=== PATIENT | female | born 1980 | race African-American/Black ===

== ENCOUNTER 2019-07-27 09:45 | Inpatient (IN) | payer OTHER ==
[~2019-07-27] VITALS: Ht 162.6 cm; Wt 72.1 kg
--- NOTE | 2019-07-27 09:58 | NUR ---
PT IS A/OX4, PRESENTS TO THE ER C/O C/P THAT BEGAN AT 1999 LAST NIGHT. PT REPOTS THE C/P CAME ON GRADUALLY WHILE AT REST, NON-PROVOKING, ACHING IN QUALITY, RADIATING DOWN THE R ARM, 2 CURRENTLY. PT SELF-MEDICATED W/ 400 MG IBUPROFEN PALLET RECTIFIER. VS WNL. PT IS SINUS BARDYCARDIC ON THE STUNTMAN. PT DENIES SOB, N/V/D, DIZZINESS, HEADACHE.
[2019-07-27] MEDS ORDERED: IBUP-1953 PO (10:04)
[2019-07-27] MEDS ORDERED: LEVO125T8 PO (10:04)
[2019-07-27] MEDS ORDERED: ATROPINE SULFATE 1 MG/10 ML DISP.SYRIN IV ONE (10:15)
[2019-07-27] MEDS ORDERED: ASPIRIN 325 MG TABLET PO ONE (10:15)
[2019-07-27] MEDS ORDERED: ASPIRIN 325 MG TABLET ONE (10:17)
[2019-07-27] MEDS ORDERED: ATROPINE SULFATE 1 MG/10 ML DISP.SYRIN ONE (10:18)
[2019-07-27 10:23] LABS: BASOPHILS % (AUTO) 0.8 % (0.0-2.0); EOSINOPHILS # (AUTO) 0.1 K/uL (0.0-0.7); EOSINOPHILS % (AUTO) 2.1 % (0.0-7.0); HEMATOCRIT 38.6 % (31.2-41.9); HEMOGLOBIN 12.7 g/dL (10.9-14.3); LYMPHOCYTES # (AUTO) 2.4 K/uL (20.0-40.0); LYMPHOCYTES % (AUTO) 45.9 % (20.5-51.5); MEAN CORPUSCULAR HGB CONC 33 g/dL (32.3-35.6); MEAN CORPUSCULAR VOLUME 94.6 fL (75.5-95.3); MONOCYTES # (AUTO) 0.5 K/uL (2.0-10.0); MONOCYTES % (AUTO) 10.1 % (0.0-11.0); NEUTROPHILS # (AUTO) 2.2 K/uL (1.8-8.9); NEUTROPHILS % (AUTO) 41.1 % (38.5-71.5); PLATELET COUNT (AUTO) 250 K/uL (179-408); RED BLOOD CELL COUNT(AUTO) 4.08 MIL/uL (3.63-4.92); WHITE BLOOD COUNT (AUTO) 5.3 K/uL (3.8-11.8)
[2019-07-27 10:26] LABS: CREATININE 0.8 mg/dL (0.6-1.3); POTASSIUM 3.6 mmol/L (3.5-5.1)
[2019-07-27 10:27] LABS: *AMPHETAMINE, URINE NEGATIVE (NEGATIVE); *BARBITURATE, URINE NEGATIVE (NEGATIVE); *CANNABINOID, URINE NEGATIVE (NEGATIVE); *COCCAINE, URINE NEGATIVE (NEGATIVE); *OPIATE, URINE NEGATIVE (NEGATIVE); *PHENCYCLIDINE SCREEN,URINE NEGATIVE (NEGATIVE)
[2019-07-27 10:34] LABS: *URINE HCG, QUAL NEGATIVE (NEGATIVE)
[2019-07-27 10:40] LABS: BILIRUBIN,DIRECT 0.1 mg/dL (0.0-0.2); BILIRUBIN,TOTAL 0.6 mg/dL (0.2-1.0); TOTAL PROTEIN, SERUM 7.5 g/dL (6.4-8.2)
--- NOTE | 2019-07-27 11:03 | NUR ---
JENIFER ROBERTSON SPEAKING W/ [facility]PITAL[facility], LUZ RENDON NP.
[2019-07-27] MEDS ORDERED: IV NS 1000 ML 1,000 ML IV PRN (11:06)
[2019-07-27] MEDS ORDERED: TEMAZEPAM 15 MG CAPSULE PO PRN (11:15)
[2019-07-27] MEDS ORDERED: HYDROCODONE/APAP 5-325MG TABLET PO PRN (11:15)
[2019-07-27] MEDS ORDERED: NITROGLYCERIN 0.4 MG/TAB BOTTLE SL PRN (11:15)
[2019-07-27] MEDS ORDERED: ACETAMINOPHEN 325 MG TABLET PO PRN (11:15)
[2019-07-27] MEDS ORDERED: MORPHINE SULFATE 2 MG/1 ML DISP.SYRIN IV PRN (11:15)
[2019-07-27] MEDS ORDERED: ONDANSETRON 4 MG/2 ML VIAL IV PRN (11:15)
[2019-07-27] MEDS ORDERED: MAGNESIUM HYDROXIDE 30 ML LIQUID UDC PO PRN (11:15)
[2019-07-27] MEDS ORDERED: NITROGLYCERIN 0.4 MG/TAB BOTTLE SL ONE (11:15)
--- NOTE | 2019-07-27 11:22 | NUR ---
ADMITTING REPORT GIVEN TO MARY HINES.
--- NOTE | 2019-07-27 12:24 | NUR ---
Pt. admitted to TELE 320, under care of LUZ RENDON NP. Belongs List completed
--- NOTE | 2019-07-27 12:49 | NUR ---
39 year old female admitted to room 320 .pt is axox4 vs are stable md called for admission orders call light with in reach
[2019-07-27 13:14] VITALS: BP 102/63
[2019-07-27 15:54] VITALS: BP 101/52
--- NOTE | 2019-07-27 18:05 | NUR ---
dc orders received noted and carried out,dcinstruction and education given to the pt,kale kincaid per md orders,pt said she will follow up with wheel lacer and truer on Tuesday pt left the facility via private car in stable condition ,
[2019-07-28] MEDS ORDERED: LEVOTHYROXINE SODIUM 125 MCG TABLET PO SCH (07:00)
[2019-07-28] MEDS ORDERED: ASPIRIN 81 MG TAB.CHEW PO SCH (09:00)
== END 2019-07-27 18:05 | disposition home or self-care (01) | DRG 392 ==
LOC: ER 09:45 → TELE3 12:07
PROVIDERS: ADMIT Nurse Practitioner Acute Care; ATTEND Nurse Practitioner Acute Care
DX: K21.9 Gastro-esophageal reflux disease without esophagitis (principal); E89.0 Postprocedural hypothyroidism; Z91.041 Radiographic dye allergy status; Z87.892 Personal history of anaphylaxis; Z80.42 Family history of malignant neoplasm of prostate; E66.9 Obesity, unspecified; Z68.27 Body mass index [BMI] 27.0-27.9, adult
CPT/HCPCS: 36415; 70030-TC; 71045; 80307; 84443; 84703; 85025; 93005; 93307; A4663; G0378; J0461; J7030

== ENCOUNTER 2019-08-01 19:49 | Emergency (ER) | payer OTHER ==
[~2019-08-01] VITALS: Ht 162.6 cm; Wt 72.1 kg
[~2019-08-01 19:49] MED LIST: IBUP-1953 PO; LEVO125T8 PO
--- NOTE | 2019-08-01 20:10 | NUR ---
DR. TONY AT BEDSIDE FOR MSE.
--- NOTE | 2019-08-01 20:58 | NUR ---
Patient discharged to home in stable conditon. Written and verbal after care instructions given. Patient verbalizes understanding of instructions. PATIENT LEFT WITH STABLE GAIT.
[2019-08-01 20:59] VITALS: BP 108/59
== END 2019-08-01 21:00 | disposition home or self-care (01) ==
LOC: ER 19:51
DX: Z00.00 Encounter for general adult medical examination without abnormal findings (principal); E03.9 Hypothyroidism, unspecified; Z91.041 Radiographic dye allergy status; Z79.1 Long term (current) use of non-steroidal anti-inflammatories (NSAID); Z79.899 Other long term (current) drug therapy
CPT/HCPCS: 93005; A4663

== ENCOUNTER 2024-07-29 07:17 | Emergency (ER) | payer BC, OTHER ==
[~2024-07-29] VITALS: Ht 162.6 cm; Wt 73.0 kg
[2024-07-29 08:18] LABS: BASOPHILS % (AUTO) 0.3 % (0.0-2.0); EOSINOPHILS # (AUTO) 0.2 K/uL (0.0-0.7); EOSINOPHILS % (AUTO) 2.9 % (0.0-7.0); HEMATOCRIT 34.7 % (31.2-41.9); HEMOGLOBIN 11.2 g/dL (10.9-14.3); LYMPHOCYTES # (AUTO) 1.9 K/uL (0.8-4.8); LYMPHOCYTES % (AUTO) 31.3 % (20.5-51.5); MEAN CORPUSCULAR HEMOGLOBIN 28.7 uug (24.7-32.8); MEAN CORPUSCULAR HGB CONC 32 g/dL (32.3-35.6); MEAN CORPUSCULAR VOLUME 89.4 fL (75.5-95.3); MONOCYTES # (AUTO) 0.6 K/uL (0.1-1.30); MONOCYTES % (AUTO) 9.6 % (0.0-11.0); NEUTROPHILS # (AUTO) 3.4 K/uL (1.8-8.9); NEUTROPHILS % (AUTO) 55.9 % (38.5-71.5); PLATELET COUNT (AUTO) 287 K/uL (179-408); RED BLOOD CELL COUNT(AUTO) 3.89 MIL/uL (3.63-4.92); RED CELL DISTRIBUTION WIDTH 15.3 % (12.3-17.7); WHITE BLOOD COUNT (AUTO) 6.2 K/uL (3.8-11.8)
[2024-07-29 08:21] LABS: DIFFERENTIAL COMMENT 1
[2024-07-29 08:32] LABS: ALBUMIN 3.6 g/dL (3.4-5.0); BILIRUBIN,DIRECT 0.1 mg/dL (0.0-0.2); BILIRUBIN,TOTAL 0.6 mg/dL (0.2-1.0); CALCIUM 8.7 mg/dL (8.5-10.1); CREATININE 0.7 mg/dL (0.6-1.3); POTASSIUM 3.8 mmol/L (3.5-5.1); TOTAL PROTEIN, SERUM 7.5 g/dL (6.4-8.2)
[2024-07-29] MEDS ORDERED: MEDR5TAB PO (09:23)
[2024-07-29] MEDS ORDERED: medroxyPROGESTERone ACET 5 MG TABLET PO ONE (09:30)
[2024-07-29] MEDS ORDERED: NORE5TAB3 PO (09:47)
[2024-07-29 10:09] VITALS: BP 141/76; O2SAT 99
== END 2024-07-29 10:14 | disposition home or self-care (01) ==
LOC: ER 07:19
DX: N93.9 Abnormal uterine and vaginal bleeding, unspecified (principal); E03.9 Hypothyroidism, unspecified; R06.02 Shortness of breath; G25.81 Restless legs syndrome; Z79.890 Hormone replacement therapy; Z90.89 Acquired absence of other organs; Z79.3 Long term (current) use of hormonal contraceptives; Z91.041 Radiographic dye allergy status
CPT/HCPCS: 36415; 84443; 85025; A4606; A4663